=== PATIENT | male | born 1990 | race African-American/Black ===

== ENCOUNTER 2018-03-23 12:36 | Inpatient (IN) | payer MEDICAID ==
[~2018-03-23] VITALS: Ht 167.6 cm; Wt 73.5 kg
[2018-03-23] MEDS ORDERED: PANTOPRAZOLE SODIUM 40 MG/VIAL IV STA (13:31)
[2018-03-23] MEDS ORDERED: SODIUM CHLORIDE 0.9% 1,000 ML IV ONE (13:31)
[2018-03-23 14:37] LABS: CHLORIDE 104 mEq/L (98-107)
[2018-03-23 14:39] LABS: INR 1.1; PROTHROMBIN TIME 11.3 sec (9.1-11.1)
[2018-03-23 14:41] LABS: BASOPHILS % 0.5 % (0.0-2.0); EOSINOPHILS % 1.3 % (0.0-5.0); HEMATOCRIT. 38.4 % (42.0-52.0); HEMOGLOBIN. 13.2 g/dL (14.0-18.0); MEAN CORPUSCULAR HEMOGLOBIN 31.2 pg (28.0-32.0); MEAN CORPUSCULAR VOLUME 90.5 fL (80.0-94.0); MEAN PLATELET VOLUME 9.7 fl (7.4-10.4); MONOCYTES % 12.5 % (2.0-8.0); NEUTROPHILS % 44.7 % (40.0-76.0); PLATELET 164 x1000/uL (130-400); RED BLOOD CELL COUNT 4.24 mill/uL (4.7-6.1); RED CELL DISTRIBUTION WIDTH 13.8 % (11.6-14.6)
[2018-03-23] MEDS ORDERED: IPRATROPIUM/ALBUTEROL 0.5-3(2.5)MG/3ML NEB INH PRN (15:15)
[2018-03-23] MEDS ORDERED: CLONIDINE 0.1MG TABLET PO PRN (15:15)
[2018-03-23 15:38] LABS: CLARITY URINE CLEAR (CLEAR); COLOR URINE YELLOW (YELLOW); KETONES URINE NEGATIVE (NEGATIVE); LEUKOCYTE ESTERASE URINE NEGATIVE (NEGATIVE); NITRITE URINE NEGATIVE (NEGATIVE); OCCULT BLOOD URINE 1+ (NEGATIVE); PROTEIN URINE NEGATIVE (NEGATIVE); SPECIFIC GRAVITY URINE 1.028 (1.005-1.030); UROBILINOGEN URINE 0.2 E.U./dL (0.2-1.0)
[2018-03-23 16:01] LABS: *AMPHETAMINES SCREEN URINE NEGATIVE (NEGATIVE)
[2018-03-23 16:02] LABS: *BARBITURATES SCREEN URINE NEGATIVE (NEGATIVE); *BENZODIAZEPINES SCREEN URINE NEGATIVE (NEGATIVE); *COCAINE SCREEN URINE NEGATIVE (NEGATIVE); METHADONE URINE SCREEN NEGATIVE (NEGATIVE); OPIATES URINE SCREEN NEGATIVE (NEGATIVE)
[2018-03-23 16:03] LABS: CANNABINOID URINE SCREEN NEGATIVE (NEGATIVE)
[2018-03-23 16:06] LABS: PHENCYCLIDINE URINE SCREEN NEGATIVE (NEGATIVE)
[2018-03-23 20:58] VITALS: BP 113/55
[2018-03-23 21:00] VITALS: BP 113/55
[2018-03-23] MEDS: SODIUM CHLORIDE 0.9% 1,000 ML IV SCH (23:09)
[2018-03-23] MEDS ORDERED: IBUP-2028 MT (23:30)
[2018-03-23] MEDS ORDERED: NAPR500T7 PO (23:30)
[2018-03-24] VITALS: BP 105/68
[2018-03-24 04:00] VITALS: BP 99/48
[2018-03-24 07:43] VITALS: BP 100/52
[2018-03-24] MEDS ORDERED: PANTOPRAZOLE SODIUM 40 MG/VIAL IV SCH (09:00)
[2018-03-24] MEDS: OMEPRAZOLE 20MG CAPSULE EXTENDED RELEASE PO SCH (10:00)
[2018-03-24] MEDS: SODIUM CHLORIDE 0.9% 1,000 ML IV SCH (11:04)
[2018-03-24 11:59] VITALS: BP 107/66
[2018-03-24] MEDS: HYDROMORPHONE HCL/PF 2MG/ML CPJ IV PRN (14:59)
[2018-03-24 16:00] VITALS: BP 118/70
[2018-03-24] MEDS: ONDANSETRON HCL 4MG/2ML INJ IV PRN (16:07)
[2018-03-24] MEDS: ACETAMINOPHEN 325MG TABLET PO PRN (16:44)
[2018-03-24 17:04] LABS: HEMATOCRIT 32.8 % (42.0-52.0); HEMOGLOBIN 11.3 g/dL (14.0-18.0)
[2018-03-24 19:36] LABS: HEMATOCRIT 30.3 % (42.0-52.0); HEMOGLOBIN 10.6 g/dL (14.0-18.0)
[2018-03-24 20:00] VITALS: BP 105/54
[2018-03-24] MEDS: HYDROCORTISONE ACETATE 25MG SUPP PR SCH (20:52)
[2018-03-24] MEDS: HEMORRHOIDAL SUPP PR SCH (20:52)
[2018-03-25] VITALS: BP_SYST 102; BP_DIAS 54; BP_DIAS 84
[2018-03-25] MEDS: SODIUM CHLORIDE 0.9% 1,000 ML IV SCH ×2 (00:05→14:09)
[2018-03-25 04:00] VITALS: BP 106/56
[2018-03-25] MEDS: OMEPRAZOLE 20MG CAPSULE EXTENDED RELEASE PO SCH (06:42)
[2018-03-25 07:23] LABS: BASOPHILS % 0.4 % (0.0-2.0); EOSINOPHILS % 1.5 % (0.0-5.0); HEMATOCRIT. 26.6 % (42.0-52.0); HEMOGLOBIN. 9.4 g/dL (14.0-18.0); MEAN CORPUSCULAR HEMOGLOBIN 31.7 pg (28.0-32.0); MEAN CORPUSCULAR VOLUME 89.3 fL (80.0-94.0); MEAN PLATELET VOLUME 9.9 fl (7.4-10.4); NEUTROPHILS % 41.1 % (40.0-76.0); PLATELET 146 x1000/uL (130-400); RED BLOOD CELL COUNT 2.98 mill/uL (4.7-6.1); RED CELL DISTRIBUTION WIDTH 13.6 % (11.6-14.6)
[2018-03-25 07:41] LABS: CHLORIDE 105 mEq/L (98-107)
[2018-03-25 07:42] VITALS: BP 116/70
[2018-03-25] MEDS: HYDROCORTISONE ACETATE 25MG SUPP PR SCH ×2 (08:31→21:10)
[2018-03-25] MEDS: HEMORRHOIDAL SUPP PR SCH ×2 (08:31→21:10)
[2018-03-25] MEDS ORDERED: METOCLOPRAMIDE HCL 10MG/2ML VIAL IV SCH (10:00)
[2018-03-25 12:00] VITALS: BP 107/59
[2018-03-25] MEDS: HYDROCODONE/ACETAMINOPHEN 5/325MG TABLET PO PRN (12:44)
[2018-03-25] MEDS ORDERED: SODIUM CHLORIDE 0.9% 10ML VIAL ONE (14:20)
[2018-03-25] MEDS ORDERED: MIDAZOLAM HCL 5 MG/5 ML VIAL ONE ×2 (15:01→15:31)
[2018-03-25] MEDS ORDERED: FENTANYL CITRATE/PF 50MCG/ML 2ML VIAL ONE (15:01)
[2018-03-25] MEDS ORDERED: MIDAZOLAM HCL 5 MG/5 ML VIAL IV PRN (15:15)
[2018-03-25] MEDS ORDERED: FENTANYL CITRATE/PF 50MCG/ML 2ML VIAL IV PRN (15:17)
[2018-03-25] MEDS ORDERED: DIATR MEGLU/DIATRIZOATE SOLN 30ML PO NR (16:00)
[2018-03-25] MEDS ORDERED: SORBITOL 70% SOLN 30ML PO NR ×2 (16:00→20:00)
[2018-03-25] MEDS ORDERED: IOHEXOL-300 100 ML BOTTLE ONE (18:51)
[2018-03-25 20:00] VITALS: BP 117/65
[2018-03-26] VITALS: BP 114/55
[2018-03-26 04:00] VITALS: BP 113/58
[2018-03-26] MEDS: ACETAMINOPHEN 325MG TABLET PO PRN (06:25)
[2018-03-26] MEDS: SODIUM CHLORIDE 0.9% 1,000 ML IV SCH ×2 (06:25→16:07)
[2018-03-26 07:14] LABS: BASOPHILS % 0.6 % (0.0-2.0); EOSINOPHILS % 3.4 % (0.0-5.0); HEMATOCRIT. 22.6 % (42.0-52.0); HEMOGLOBIN. 8.1 g/dL (14.0-18.0); LYMPHOCYTES % 38.5 % (20.0-50.0); MEAN CORPUSCULAR HEMOGLOBIN 31.7 pg (28.0-32.0); MEAN CORPUSCULAR VOLUME 88.3 fL (80.0-94.0); MEAN PLATELET VOLUME 9.7 fl (7.4-10.4); MONOCYTES % 10.6 % (2.0-8.0); NEUTROPHILS % 46.9 % (40.0-76.0); PLATELET 145 x1000/uL (130-400); RED BLOOD CELL COUNT 2.56 mill/uL (4.7-6.1); RED CELL DISTRIBUTION WIDTH 13.6 % (11.6-14.6)
[2018-03-26 07:25] LABS: CHLORIDE 104 mEq/L (98-107)
[2018-03-26 08:00] VITALS: BP 107/59
[2018-03-26] MEDS ORDERED: SORBITOL 70% SOLN 30ML PO NR (08:00)
[2018-03-26] MEDS: ONDANSETRON HCL 4MG/2ML INJ IV PRN (08:13)
[2018-03-26] MEDS: PANTOPRAZOLE SODIUM 40 MG/VIAL IV SCH (08:13)
[2018-03-26] MEDS: HYDROCODONE/ACETAMINOPHEN 5/325MG TABLET PO PRN ×3 (08:13→21:00)
[2018-03-26] MEDS: HEMORRHOIDAL SUPP PR SCH ×2 (08:20→21:32)
[2018-03-26] MEDS: HYDROCORTISONE ACETATE 25MG SUPP PR SCH ×2 (08:20→21:29)
[2018-03-26 12:00] VITALS: BP 114/69
[2018-03-26 16:00] VITALS: BP 112/68
[2018-03-26 20:30] VITALS: BP 115/70
[2018-03-27] VITALS (19 sets, daily range): BP systolic 70–126; BP diastolic 30–72
[2018-03-27 00:25] LABS: HEMATOCRIT 21.1 % (42.0-52.0); HEMOGLOBIN 7.4 g/dL (14.0-18.0)
[2018-03-27] MEDS ORDERED: BISACODYL 5MG TABLET PO PRN (02:00)
[2018-03-27] MEDS ORDERED: METOCLOPRAMIDE HCL 10MG/2ML VIAL IV SCH ×2 (02:00→11:30)
[2018-03-27] MEDS ORDERED: SORBITOL 70% SOLN 30ML PO PRN (02:00)
[2018-03-27] MEDS ORDERED: DEXT 5%/0.45% NACL KCL 20MEQ/L 1,000 ML IV SCH (02:00)
[2018-03-27] MEDS: ONDANSETRON HCL 4MG/2ML INJ IV PRN ×2 (04:47→14:46)
[2018-03-27] MEDS ORDERED: DEXT 5%/0.45% NACL 1000ML 1,000 ML IV SCH (06:15)
[2018-03-27 06:17] LABS: BASOPHILS % 0.2 % (0.0-2.0); EOSINOPHILS % 0.3 % (0.0-5.0); MEAN CORPUSCULAR HEMOGLOBIN 31.6 pg (28.0-32.0); MEAN CORPUSCULAR VOLUME 89.9 fL (80.0-94.0); MEAN PLATELET VOLUME 9.5 fl (7.4-10.4); MONOCYTES % 8.7 % (2.0-8.0); NEUTROPHILS % 64.8 % (40.0-76.0); PLATELET 141 x1000/uL (130-400); RED BLOOD CELL COUNT 2.12 mill/uL (4.7-6.1); RED CELL DISTRIBUTION WIDTH 13.2 % (11.6-14.6)
[2018-03-27 06:21] LABS: CHLORIDE 105 mEq/L (98-107)
[2018-03-27 06:28] LABS: HEMOGLOBIN. 6.7 g/dL (14.0-18.0)
[2018-03-27 06:29] LABS: HEMATOCRIT. 19.1 % (42.0-52.0)
[2018-03-27] MEDS: HEMORRHOIDAL SUPP PR SCH ×2 (09:44→20:53)
[2018-03-27] MEDS: PANTOPRAZOLE SODIUM 40 MG/VIAL IV SCH (09:44)
[2018-03-27] MEDS: HYDROCORTISONE ACETATE 25MG SUPP PR SCH ×2 (09:44→20:53)
[2018-03-27] MEDS: HYDROMORPHONE HCL/PF 2MG/ML CPJ IV PRN (12:12)
[2018-03-27 13:42] LABS: HEMATOCRIT 22.6 % (42.0-52.0); HEMOGLOBIN 7.9 g/dL (14.0-18.0)
[2018-03-27] MEDS ORDERED: SODIUM CHLORIDE 0.9% 200 ML IV ONE (16:00)
[2018-03-27] MEDS: ACETAMINOPHEN 325MG TABLET PO PRN (16:40)
[2018-03-27] MEDS: METOCLOPRAMIDE HCL 10MG/2ML VIAL IV SCH ×2 (17:42→23:40)
[2018-03-27] MEDS: DEXT 5%/0.45% NACL 1000ML 1,000 ML IV SCH ×2 (17:42→23:40)
[2018-03-27] MEDS ORDERED: SODIUM CHLORIDE 0.9% 1,000 ML IV SCH (18:45)
[2018-03-27 19:31] LABS: HEMATOCRIT 25.6 % (42.0-52.0); HEMOGLOBIN 8.9 g/dL (14.0-18.0)
[2018-03-27 19:34] LABS: CLARITY URINE CLEAR (CLEAR); COLOR URINE YELLOW (YELLOW); KETONES URINE 3+ (NEGATIVE); LEUKOCYTE ESTERASE URINE NEGATIVE (NEGATIVE); NITRITE URINE NEGATIVE (NEGATIVE); OCCULT BLOOD URINE TRACE (NEGATIVE); PH URINE 5.5 (4.5-8.0); PROTEIN URINE NEGATIVE (NEGATIVE); SPECIFIC GRAVITY URINE 1.029 (1.005-1.030); UROBILINOGEN URINE 0.2 E.U./dL (0.2-1.0)
[2018-03-27 19:40] LABS: CHLORIDE 108 mEq/L (98-107)
[2018-03-27] MEDS: HYDROCODONE/ACETAMINOPHEN 5/325MG TABLET PO PRN (20:04)
[2018-03-28] VITALS: BP 101/50
[2018-03-28] MEDS ORDERED: LORAZEPAM 2MG/ML CPJ IV SCH (00:50)
[2018-03-28 04:00] VITALS: BP 106/68
[2018-03-28] MEDS: METOCLOPRAMIDE HCL 10MG/2ML VIAL IV SCH ×3 (06:12→17:37)
[2018-03-28] MEDS ORDERED: BISACODYL 5MG TABLET PO PRN (07:00)
[2018-03-28] MEDS ORDERED: BARIUM SULFATE(VOLUMEN) 450 ML ORAL.SUSP ONE (07:29)
[2018-03-28 08:21] LABS: BASOPHILS % 0.6 % (0.0-2.0); EOSINOPHILS % 1.2 % (0.0-5.0); HEMATOCRIT. 22.4 % (42.0-52.0); LYMPHOCYTES % 33.4 % (20.0-50.0); MEAN CORPUSCULAR HEMOGLOBIN 31.7 pg (28.0-32.0); MEAN PLATELET VOLUME 9.8 fl (7.4-10.4); MONOCYTES % 8.7 % (2.0-8.0); NEUTROPHILS % 56.1 % (40.0-76.0); PLATELET 130 x1000/uL (130-400); RED BLOOD CELL COUNT 2.51 mill/uL (4.7-6.1); RED CELL DISTRIBUTION WIDTH 14.2 % (11.6-14.6)
[2018-03-28] MEDS: HEMORRHOIDAL SUPP PR SCH ×2 (09:00→20:23)
[2018-03-28] MEDS: HYDROCORTISONE ACETATE 25MG SUPP PR SCH ×2 (09:00→20:11)
[2018-03-28 09:48] LABS: CHLORIDE 106 mEq/L (98-107)
[2018-03-28] MEDS ORDERED: IOHEXOL-350 100 ML BOTTLE ONE (10:15)
[2018-03-28] MEDS ORDERED: POTASSIUM CHLORIDE 20MEQ/PACKET PO NR (10:30)
[2018-03-28] MEDS: PANTOPRAZOLE SODIUM 40 MG/VIAL IV SCH (10:46)
[2018-03-28] MEDS: DEXT 5%/0.45% NACL 1000ML 1,000 ML IV SCH ×2 (10:47→17:35)
[2018-03-28 12:00] VITALS: BP 100/55
[2018-03-28 13:18] LABS: HEMATOCRIT 23.4 % (42.0-52.0); HEMOGLOBIN 8.3 g/dL (14.0-18.0)
[2018-03-28 15:14] LABS: HEMATOCRIT 23.5 % (42.0-52.0); HEMOGLOBIN 8.4 g/dL (14.0-18.0)
[2018-03-28 16:00] VITALS: BP 105/51
[2018-03-28] MEDS ORDERED: SORBITOL 70% SOLN 30ML PO NR (16:00)
[2018-03-28] MEDS ORDERED: ZOLPIDEM TARTRATE 5MG TABLET PO PRN (17:45)
[2018-03-28 20:00] VITALS: BP 116/52
[2018-03-28] MEDS: ONDANSETRON HCL 4MG/2ML INJ IV PRN (21:35)
[2018-03-29] VITALS: BP 101/55
[2018-03-29] MEDS ORDERED: POTASSIUM CHLORIDE 20MEQ TABLET SR PO SCH (00:15)
[2018-03-29] MEDS: METOCLOPRAMIDE HCL 10MG/2ML VIAL IV SCH ×3 (00:30→12:02)
[2018-03-29] MEDS: DEXT 5%/0.45% NACL 1000ML 1,000 ML IV SCH ×2 (00:31→09:22)
[2018-03-29 01:36] LABS: HEMATOCRIT 23.6 % (42.0-52.0); HEMOGLOBIN 8.4 g/dL (14.0-18.0)
[2018-03-29 04:00] VITALS: BP 111/62
[2018-03-29 05:42] LABS: INR 1.1; PARTIAL THROMBOPLASTIN TIME 23.2 sec (23.4-31.0)
[2018-03-29 05:59] LABS: CHLORIDE 107 mEq/L (98-107)
[2018-03-29] MEDS ORDERED: SORBITOL 70% SOLN 30ML PO NR (06:00)
[2018-03-29 06:15] LABS: HEMOGLOBIN. 8.8 g/dL (14.0-18.0); MEAN CORPUSCULAR HEMOGLOBIN 31.8 pg (28.0-32.0); MEAN CORPUSCULAR VOLUME 90.2 fL (80.0-94.0); MEAN PLATELET VOLUME 9.8 fl (7.4-10.4); PLATELET 188 x1000/uL (130-400); RED BLOOD CELL COUNT 2.78 mill/uL (4.7-6.1); RED CELL DISTRIBUTION WIDTH 14.5 % (11.6-14.6)
[2018-03-29 07:21] LABS: PHOSPHORUS 2.8 mg/dL (2.5-4.9)
[2018-03-29 08:00] VITALS: BP 120/63
[2018-03-29] MEDS: PANTOPRAZOLE SODIUM 40 MG/VIAL IV SCH (08:20)
[2018-03-29] MEDS: HYDROCORTISONE ACETATE 25MG SUPP PR SCH (08:20)
[2018-03-29] MEDS: HEMORRHOIDAL SUPP PR SCH (08:22)
[2018-03-29 10:55] LABS: PLATELET ESTIMATE NORMAL
[2018-03-29 12:00] VITALS: BP 123/70
[2018-03-29] MEDS ORDERED: SIMETHICONE 40 MG/0.6 ML 30ML ONE (13:46)
[2018-03-29] MEDS ORDERED: MIDAZOLAM HCL 5 MG/5 ML VIAL ONE (13:55)
[2018-03-29] MEDS ORDERED: FENTANYL CITRATE/PF 50MCG/ML 2ML VIAL ONE (13:56)
[2018-03-29] MEDS ORDERED: FENTANYL CITRATE/PF 50MCG/ML 2ML VIAL IV PRN (13:58)
[2018-03-29] MEDS ORDERED: MIDAZOLAM HCL 5 MG/5 ML VIAL IV PRN (13:59)
[2018-03-29] MEDS ORDERED: SODIUM CHLORIDE 0.9% 10ML VIAL ONE (15:52)
[2018-03-29 16:00] VITALS: BP 122/70
[2018-03-29 17:38] VITALS: BP 122/70
== END 2018-03-29 18:40 | disposition home or self-care (01) | DRG 241 ==
LOC: ER 12:36 → 8WST 15:01 → EDBEDREQTM 20:25 → ENRESERV 20:25 → EDBEDREQSVC 20:25
PROVIDERS: ADMIT Internal Medicine; ATTEND Internal Medicine
PROC: 0DB68ZX Excision of Stomach, Via Natural or Artificial Opening Endoscopic, Diagnostic (ICD-10-PCS; principal; 2018-03-25)
PROC: 30233N1 Transfusion of Nonautologous Red Blood Cells into Peripheral Vein, Percutaneous Approach (ICD-10-PCS; 2018-03-27)
PROC: 0DJD8ZZ Inspection of Lower Intestinal Tract, Via Natural or Artificial Opening Endoscopic (ICD-10-PCS; 2018-03-29)
DX: K29.01 Acute gastritis with bleeding (principal); Q43.8 Other specified congenital malformations of intestine; D64.9 Anemia, unspecified; K59.09 Other constipation; K63.89 Other specified diseases of intestine; J45.909 Unspecified asthma, uncomplicated; K21.9 Gastro-esophageal reflux disease without esophagitis; K64.9 Unspecified hemorrhoids; K64.4 Residual hemorrhoidal skin tags
CPT/HCPCS: 36415; 74177; 78278; 80048; 80305; 82270; 82962; 83605; 83735; 84100; 84132; 85014; 85018; 85049; 85384; 86078; 86677; 86850; 86900; 86920; 88305; 88312; 88313; 96374; 99152; 99285; A9560; C9113; J1170; J2060; J2250; J2405; J2765; J3010; J3490; J7030; J7040; J7050; P9016; Q9963; Q9967; G0500

== ENCOUNTER 2018-08-16 20:58 | Emergency (ER) | payer MEDICAID ==
[~2018-08-16] VITALS: Ht 167.6 cm; Wt 72.0 kg
[2018-08-16] MEDS ORDERED: METHYLPREDNISOLONE SOD SUCC 125 MG/2 ML VIAL IV STA (22:34)
[2018-08-16] MEDS ORDERED: IPRATROPIUM BROMIDE (0.02%) 0.5MG/2.5ML NEB HHN STA (22:34)
[2018-08-16] MEDS ORDERED: METHYLPREDNISOLONE SOD SUCC 125 MG/2 ML VIAL IV NR (23:00)
[2018-08-16] MEDS ORDERED: ALBUTEROL (0.083%) 2.5MG/3ML NEB HHN SCH (23:00)
[2018-08-17 00:51] VITALS: BP 111/62
== END 2018-08-17 00:55 | disposition home or self-care (01) ==
LOC: ER 20:58
DX: J06.9 Acute upper respiratory infection, unspecified (principal); J45.909 Unspecified asthma, uncomplicated; Z98.890 Other specified postprocedural states
CPT/HCPCS: 71045; 96374; 99283; J2930; Z7610

== ENCOUNTER 2018-10-14 07:59 | Emergency (ER) | payer MEDICAID ==
[~2018-10-14] VITALS: Ht 167.6 cm; Wt 70.0 kg
[2018-10-14 08:13] VITALS: BP 116/69
[2018-10-14] MEDS ORDERED: DEXAMETHASONE 4MG/ML 1ML VIAL IM SCH (10:30)
== END 2018-10-14 11:04 | disposition home or self-care (01) ==
LOC: ER 07:59
DX: J02.9 Acute pharyngitis, unspecified (principal); R50.9 Fever, unspecified; J45.909 Unspecified asthma, uncomplicated; Z88.6 Allergy status to analgesic agent; Z87.19 Personal history of other diseases of the digestive system; Z87.09 Personal history of other diseases of the respiratory system
CPT/HCPCS: 96372; 99283; J1100

== ENCOUNTER 2018-10-21 01:05 | Emergency (ER) | payer MEDICAID ==
[~2018-10-21] VITALS: Ht 167.6 cm; Wt 68.0 kg
[2018-10-21 07:17] VITALS: BP 122/54
== END 2018-10-21 07:18 | disposition home or self-care (01) ==
LOC: ER 01:05
DX: J02.9 Acute pharyngitis, unspecified (principal); J45.909 Unspecified asthma, uncomplicated; Z98.890 Other specified postprocedural states; Z88.8 Allergy status to other drugs, medicaments and biological substances
CPT/HCPCS: 99281